=== PATIENT | female | born 1980 | race Caucasian/White ===

== ENCOUNTER 2018-02-14 15:08 | Observation (INO) | payer OTHER ==
[~2018-02-14] VITALS: Ht 170.2 cm; Wt 76.2 kg
[2018-02-14 16:02] LABS: MEAN CORPUSCULAR HEMOGLOBIN 19.4 pg (27.0-34.8); MEAN CORPUSCULAR HGB CONC 30.9 g/dL (32.4-35.8); MEAN CORPUSCULAR VOLUME 62.8 fL (80-100); MEAN PLATELET VOLUME 8.9 fL (7.4-10.4); PLATELET COUNT 402 x10^3/uL (130-400); RED BLOOD COUNT 4.47 x10^6/uL (3.82-5.3); RED CELL DISTRIBUTION WIDTH 19.1 % (9.6-15.2)
[2018-02-14 16:03] LABS: MD YES
[2018-02-14 16:05] LABS: ALANINE AMINOTRANSFERASE 21 U/L (12-78); ALBUMIN 4.1 g/dL (3.4-5.0); ANION GAP 6 mmol/L (5-15); CALCIUM 8.7 mg/dL (8.5-10.1); CHLORIDE 107 mmol/L (98-107); CREATININE 0.89 mg/dL (0.55-1.02)
[2018-02-14 16:09] LABS: ALKALINE PHOSPHATASE 80 U/L (45-117); BILIRUBIN,TOTAL 0.5 mg/dL (0.2-1.0); TOTAL PROTEIN 7.7 g/dL (6.4-8.2)
[2018-02-14 16:20] LABS: EOS#(MANUAL) 0.13 x10^3/uL (0.0-0.4); EOS% (MANUAL) 2 % (1-7); LYMPH#(MANUAL) 1.81 x10^3/uL (1-3.4); LYMPHS% (MANUAL) 27 % (22-44); MONOS% (MANUAL) 6 % (2-9); SEG#(MANUAL) 4.36 x10^3/uL (1.8-6.8); SEGS% (MANUAL) 65 % (42-75)
[2018-02-14 16:21] LABS: ANISOCYTOSIS 1+; HYPOCHROMIA 2+; MICROCYTOSIS 3+
[2018-02-14 16:22] LABS: <PLATELET ESTIMATE> ADEQUATE; GIANT PLATELETS 1+; OVALOCYTES 1+
[2018-02-14] MEDS ORDERED: IRON (17:27)
[2018-02-14] MEDS ORDERED: IBUP200T64 PO (17:28)
[2018-02-14] MEDS ORDERED: PRENAT (17:28)
[2018-02-14 17:40] LABS: MICROSCOPIC NOT IND
[2018-02-14 17:42] LABS: CULTURE INDICATED? NO
[2018-02-14] MEDS ORDERED: EPINEPHRINE 1 MG/ML, 1ML ONE (19:43)
[2018-02-14] MEDS ORDERED: BUPIVACAINE 0.25% ONE (19:43)
[2018-02-14] MEDS ORDERED: MIDAZOLAM 1 MG/ML, 2ML ONE (19:44)
[2018-02-14] MEDS ORDERED: FENTANYL PF 250 MCG/5ML ONE (20:00)
[2018-02-14] MEDS ORDERED: PROPOFOL 10 MG/ML, 20ML ONE ×2 (20:00)
[2018-02-14] MEDS ORDERED: SUCCINYLCHOLINE 20 MG/ML, 10ML ONE (20:01)
[2018-02-14] MEDS ORDERED: ROCURONIUM 10MG/ML,5ML ONE (20:01)
[2018-02-14] MEDS ORDERED: DEXAMETHASONE 4 MG/ML, 1ML ONE ×3 (20:01)
[2018-02-14] MEDS ORDERED: CEFAZOLIN 1,000 MG ONE ×2 (20:01)
[2018-02-14] MEDS ORDERED: ONDANSETRON 2MG/ML, 2ML ONE ×3 (20:01→21:46)
[2018-02-14] MEDS ORDERED: BUPIVACAINE/PF-EPI 0.25% 1:200K IM ONE (20:22)
[2018-02-14] MEDS ORDERED: MORPHINE SULFATE 4 MG/ML, 1ML ONE ×2 (21:06→21:44)
[2018-02-14] MEDS ORDERED: ACETAMINOPHEN 650 MG/20.3 ML UDC ONE (21:23)
[2018-02-14] MEDS ORDERED: OXYcodone 5 MG/5 ML ORAL.SOL UDC ONE (21:23)
[2018-02-14] MEDS ORDERED: FENTANYL PF 100 MCG/2ML ONE ×2 (21:23→21:44)
[2018-02-14] MEDS ORDERED: HALOPERIDOL 5 MG/ML IV PRN (21:30)
[2018-02-14] MEDS ORDERED: FENTANYL PF 100 MCG/2ML IV PRN ×2 (21:30→22:00)
[2018-02-14] MEDS ORDERED: MEPERIDINE/PF 25MG/0.5ML IVPush PRN (21:30)
[2018-02-14] MEDS ORDERED: PROMETHAZINE 25 MG/ML, 1ML IV PRN ×2 (21:30→22:00)
[2018-02-14] MEDS ORDERED: HYDROmorphone 1 MG/ML, 1ML IV PRN ×2 (21:30→22:00)
[2018-02-14] MEDS ORDERED: OXYcodone 5 MG/5 ML ORAL.SOL UDC PO PRN ×3 (21:30→23:00)
[2018-02-14] MEDS ORDERED: DIPHENHYDRAMINE 50 MG/ML, 1ML ONE (21:56)
[2018-02-14] MEDS ORDERED: MORPHINE SULFATE 4 MG/ML, 1ML IVPush PRN (22:00)
[2018-02-14] MEDS ORDERED: DIPHENHYDRAMINE 50 MG/ML, 1ML IVPush PRN (22:00)
[2018-02-14] MEDS ORDERED: ONDANSETRON 2MG/ML, 2ML IVPush ONE (22:00)
[2018-02-14] MEDS ORDERED: ACETAMINOPHEN 325 MG TABLET PO PRN (22:00)
[2018-02-14] MEDS ORDERED: ONDA4TAB7 PO (22:55)
[2018-02-14] MEDS ORDERED: OXYC-302 PO (22:56)
[2018-02-14] MEDS ORDERED: morphine SULFATE 10 MG/ML, 1ML IV PRN (23:00)
[2018-02-14] MEDS ORDERED: ONDANSETRON 2MG/ML, 2ML IV PRN (23:00)
[2018-02-15 00:34] VITALS: BP 99/63
== END 2018-02-15 00:55 | disposition home or self-care (01) ==
LOC: ED 18:36 → EDIP 18:41 → ED 19:10 → 4NOR 22:30
PROVIDERS: ADMIT Obstetrics & Gynecology Gynecology; ATTEND Obstetrics & Gynecology Gynecology
DX: O00.102 Left tubal pregnancy without intrauterine pregnancy (principal); K66.1 Hemoperitoneum; O99.342 Other mental disorders complicating pregnancy, second trimester; F32.9 Major depressive disorder, single episode, unspecified; F41.9 Anxiety disorder, unspecified; O99.512 Diseases of the respiratory system complicating pregnancy, second trimester; J45.909 Unspecified asthma, uncomplicated; O09.522 Supervision of elderly multigravida, second trimester; O26.892 Other specified pregnancy related conditions, second trimester; O99.612 Diseases of the digestive system complicating pregnancy, second trimester; K21.9 Gastro-esophageal reflux disease without esophagitis; Z3A.14 14 weeks gestation of pregnancy
CPT/HCPCS: 36415; 59151; 76801; 80053; 81003; 84702; 85025; 86850; 86900; 88305; 99285; G0378; J0171; J0330; J0690; J1100; J1200; J2250; J2405; J2704; J3010; J3490; 86901